=== PATIENT | male | born 1950 | race Caucasian/White ===

== ENCOUNTER 2022-08-10 05:49 | Emergency (ER) | payer MEDICARE, BC ==
[2022-08-10 06:57] LABS: CORONAVIRUS COVID-19 NAA NEGATIVE (NEGATIVE)
[2022-08-10] MEDS ORDERED: Iopamidol 755 Mg/ML 100 ML Bottle IVPUSH ONE ×2 (09:26)
[2022-08-10] MEDS ORDERED: Sodium Chloride 0.9% 1,000 ML IV SCH (09:30)
[2022-08-10] MEDS ORDERED: Sodium Chloride 0.9% 10 ML Syringe FLUSH ONE (09:30)
[2022-08-10] MEDS: Sodium Chloride 0.9% 10 ML Syringe FLUSH ONE ×2 (09:46→10:22)
[2022-08-10] MEDS ORDERED: Ibuprofen 600 MG Tab PO ONE (09:54)
[2022-08-10] MEDS ORDERED: Amoxicillin/Clavulanate K 875-125 MG Tab PO STA (10:57)
[2022-08-10] MEDS ORDERED: Azithromycin 250 MG Tab PO STA (10:57)
== END 2022-08-10 11:43 | disposition home or self-care (01) ==
LOC: JD.ED 05:49
DX: S22.42XA Multiple fractures of ribs, left side, initial encounter for closed fracture (principal); J18.9 Pneumonia, unspecified organism; R05.4 Cough syncope; R73.9 Hyperglycemia, unspecified; E66.9 Obesity, unspecified; Z68.30 Body mass index [BMI] 30.0-30.9, adult; Z20.822 Contact with and (suspected) exposure to COVID-19; W19.XXXA Unspecified fall, initial encounter
CPT/HCPCS: 0241U; 36415; 71046; 71275; 80053; 83605; 83735; 84484; 85007; 85027; 85379; 85610; 85730; 86140; 87040; 93005; 96360; 96361; 99284; A9270; J3490; J7030; Q9967; 93010

== ENCOUNTER 2024-09-22 07:58 | Day surgery (SDC) | payer MEDICARE, BC ==
[~2024-09-22 07:58] MED LIST: Sodium Chloride 0.9% 10 ML Syringe FLUSH PRN; Sodium Chloride 0.9% 10 ML Syringe FLUSH SCH
[2024-09-22] MEDS: Lactated Ringers 1,000 ML IV SCH (08:20)
[2024-09-22] MEDS ORDERED: Propofol 200 MG/20 ML SDV ONE (08:52)
[2024-09-22] MEDS ORDERED: Lidocaine 1% 4 ML ONE (08:52)
== END 2024-09-22 10:35 | disposition home or self-care (01) ==
LOC: JD.SDS 07:58
PROVIDERS: ATTEND Surgery
DX: Z12.11 Encounter for screening for malignant neoplasm of colon (principal); K62.1 Rectal polyp; R19.5 Other fecal abnormalities; I10 Essential (primary) hypertension; E78.5 Hyperlipidemia, unspecified; E11.9 Type 2 diabetes mellitus without complications; E66.9 Obesity, unspecified; Z88.8 Allergy status to other drugs, medicaments and biological substances; Z79.84 Long term (current) use of oral hypoglycemic drugs; Z79.899 Other long term (current) drug therapy; Z68.34 Body mass index [BMI] 34.0-34.9, adult
CPT/HCPCS: 45385; J2003; J2704; J7120